=== PATIENT | male | born 1995 | race Caucasian/White ===

== ENCOUNTER 2018-05-22 21:41 | Emergency (ER) | payer BC, OTHER ==
[2018-05-22] MEDS ORDERED: CLINDAMYCIN 150 MG CAP PO ONE (21:48)
--- NOTE | 2018-05-22 21:48 | Emergency Department Record ---
History of Present Illness - General Chief complaint: Bite Insect/other Stated complaint: SPIDER BITE LEFT CALF Time Seen by Provider: 05/22/18 21:46 Source: Patient Mode of Arrival: Ambulatory Limitations: No limitations - History of Present Illness Initial comments: 22 yo male presents to ED for evaluation of a "spider bite" that occurred several days while sleeping. Patient reports that his redness has worsened and spread distally, reports mild tingling distally that is intermittent associated with mild swelling to the ankle. Patient denies fevers, chills, or recent illness, and denies health problems at her baseline. MD complaint: Insect bite/sting Onset/Timin -: Days(s) Location: LLE Severity: Moderate Consistency: Constant Improves with: None Worsens with: None Context: None Associated symptoms: Denies other symptoms Treatments Prior to Arrival: None - Related Data Home Medications Medication Instructions Recorded Confirmed Last Taken Dextroamphetamine/Amphetamine 10 mg PO DAILY 05/22/18 05/22/18 05/22/18 [Adderall Xr 10 mg Capsule] Previous Rx's Medication Instructions Recorded Clindamycin HCl 300 mg PO QID #27 capsule 05/22/18 Review of Systems Constitutional: Denies: Chills, Fever, Malaise, Night sweats Eyes: Denies: Eye discharge, Eye pain ENT: Denies: Congestion, Ear pain, Epistaxis Respiratory: Denies: Cough, Dyspnea Cardiovascular: Denies: Chest pain, Dyspnea on exertion Endocrine: Denies: Fatigue, Heat or cold intolerance Gastrointestinal: Denies: Abdominal pain, Nausea, Vomiting Genitourinary: Denies: Incontinence, Retention Musculoskeletal: Denies: Arthralgia, Back pain, Gout, Joint swelling Skin: Reports: Bruising, Rash. Denies: Change in color, Change in hair/nails Neurological: Denies: Abnormal gait, Confusion, Headache, Seizure Psychiatric: Denies: Anxiety Hematological/Lymphatic: Denies: Anemia, Blood Clots Physical Exam - General General Appearance: Alert, Oriented x3, Cooperative, No acute distress Limitations: No limitations - Head Head exam: Atraumatic, Normocephalic, Normal inspection Head exam detail: negative: Abrasion, Contusion, Duque's sign, General tenderness, Hematoma, Laceration - Eye Eye exam: Normal appearance. negative: Conjunctival injection, Periorbital swelling, Periorbital tenderness, Scleral icterus - ENT Ear exam: negative: Auricular hematoma, Auricular trauma Nasal Exam: negative: Active bleeding, Discharge, Dried blood, Foreign body Mouth exam: negative: Drooling, Laceration, Muffled voice, Tongue elevation - Neck Neck exam: Normal inspection. negative: Meningismus, Tenderness - Respiratory Respiratory exam: Normal lung sounds bilaterally. negative: Rales, Respiratory distress, Rhonchi, Stridor - Cardiovascular Cardiovascular Exam: Regular rate, Normal rhythm, Normal heart sounds Peripheral Pulses: 3+: Dorsalis Pedis (L) - GI/Abdominal GI/Abdominal exam: Soft. negative: Rebound, Rigid, Tenderness - Rectal Rectal exam: Deferred - exam: Deferred - Extremities Extremities exam: Other (2.5 cm ecchymosis lesion with mild scaling present, mild induration (no fluctuance) is present to the left lateral mid-lower extremity. Findings appear c/w cellulitis vs. insect bite.). negative: Calf tenderness, Pedal edema, Tenderness - Back Back exam: Denies: CVA tenderness (R), CVA tenderness (L) - Neurological Neurological exam: Alert, Normal gait, Oriented X3 - Psychiatric Psychiatric exam: Normal affect, Normal mood - Skin Skin exam: Normal color. negative: Abrasion Type of lesion: negative: abrasion Course - Reevaluation(s) Reevaluation #1: 05/22/18 21:53 Lesion appears consistent with possible insect bite vs. mild cellulitis. Will treat with Clindamycin with instructions to return if symptoms worsen. Patient and his mother verbalize understanding of all instructions as directed. Disposition Disposition: Discharge Clinical Impression: Cellulitis Qualifiers: Site of cellulitis: extremity Site of cellulitis of extremity: lower extremity Laterality: right Qualified Code(s): L03.115 - Cellulitis of right lower limb Disposition: Home, Self-Care Condition: (2) Stable Instructions: Cellulitis (ED) Additional Instructions: Return to ED if your symptoms worsen or if you have any concerns. Clindamycin as directed. Follow-up with your family doctor in 3-5 days as directed. Prescriptions: Clindamycin HCl 300 mg PO QID #27 capsule Forms: Patient Portal Access Time of Disposition: 21:47 Quality - Quality Measures Quality Measures: N/A - Blood Pressure Screening Does Patient Have Any of the Following: No Blood Pressure Classification: Pre-Hypertensive BP Reading Systolic Measurement: 128 Diastolic Measurement: 86 Screening for High Blood Pressure: < Pre-Hypertensive BP, F/U Documented > [ [id number]] Pre-Hypertensive Follow-up Interventions: Referral to alternative/primary care provider.
== END 2018-05-22 21:59 | disposition home or self-care (01) ==
LOC: ER 21:41
DX: L03.115 Cellulitis of right lower limb (principal); R20.2 Paresthesia of skin
CPT/HCPCS: 99282